=== PATIENT | female | born 1995 | race Two or more races ===

== ENCOUNTER 2019-11-25 18:52 | Emergency (ER) | payer MEDICAID ==
[~2019-11-25] VITALS: Ht 160 cm; Wt 59.0 kg
[2019-11-25 19:21] VITALS: BP 112/75
--- NOTE | 2019-11-25 19:21 | NUR ---
ED Nurse Note: Patient being seen for uti symptoms, urine specimen collected and sent down to lab.
[2019-11-25 19:27] LABS: APPEARANCE,URINE SLIGHTLY CLOUDY; BILIRUBIN, URINE NEGATIVE (NEGATIVE); COLOR,URINE PALE YELLOW; GLUCOSE, URINE (UA) NEGATIVE (NEGATIVE); KETONES,URINE NEGATIVE (NEGATIVE); LEUKOCYTE ESTERASE ,URINE 1+ (NEGATIVE); NITRITE,URINE NEGATIVE (NEGATIVE); PH,URINE 8 (4.5-8.0); PROTEIN,URINE 1+ (NEGATIVE); UROBILINOGEN,URINE NORMAL MG/DL (0.0-1.0)
--- NOTE | 2019-11-25 19:30 | Emergency Room Report ---
History of Present Illness General Chief Complaint: Female Urogenital Problems Source: Patient Present Illness HPI 24 Yo female presents to the ED c/o urinary frequency with 8 out of 10 severity lower abdominal cramping and dysuria x2 days. Patient denies fevers or chills. Patient reports urgency as well. Patient denies nausea, vomiting, fevers, chills, constipation or diarrhea. Patient denies abdominal tenderness. Patient reports her last menstrual period was on November 15. Patient denies suspicion of at this time. She denies hematuria, vaginal discharge, genital lesions or rashes. Patient denies swollen tender lymph nodes or joint pain. She denies low back pain. No other aggravating or relieving factors at this time.. Allergies: Coded Allergies: No Known Allergies (Unverified , 08/25/15) COVID-19 Screening Contact w/high risk pt: No Experienced COVID-19 symptoms?: No COVID-19 Testing performed CARDIOLOGY RN: No Patient History Past Medical History: see triage record Past Surgical History: none Pertinent Family History: none Last Menstrual Period: 11/16/19 Now: No Reviewed Nursing Documentation: PMH: Agreed; PSxH: Agreed Nursing Documentation-PMH Past Medical History: No Stated History Review of Systems All Other Systems: negative except mentioned in HPI Physical Exam Vital Signs Date Time Temp Pulse Resp B/P (MAP) Pulse Ox O2 Delivery O2 Flow Rate FiO2 11/25/19 19:06 97.0 75 14 112/75 (87) 99 Room Air Sp02 EP Interpretation: reviewed, normal General Appearance: no apparent distress, alert, GCS 15, non-toxic Head: normocephalic, atraumatic Eyes: bilateral eye normal inspection, bilateral eye PERRL ENT: hearing grossly normal, normal voice Neck: full range of motion Respiratory: lungs clear, normal breath sounds, speaking full sentences Cardiovascular #1: regular rate, rhythm Gastrointestinal: normal bowel sounds, non tender, soft, non-distended, no guarding Genitourinary: normal inspection, no CVA tenderness Musculoskeletal: back normal, normal range of motion, gait/station normal, non- tender Neurologic: alert, motor strength/tone normal, oriented x3, sensory intact, responsive, speech normal Psychiatric: judgement/insight normal Skin: no rash, normal color Lymphatic: no adenopathy Medical Decision Making PA Attestation Dr. العلي Is my supervising Physician whom patient management has been discussed with. Diagnostic Impression: Primary Impression: UTI (urinary tract infection) Qualified Codes: N30.01 - Acute cystitis with hematuria ER Course 24 Yo female presents to the ED c/o urinary frequency with 8 out of 10 severity lower abdominal cramping and dysuria x2 days. Patient denies fevers or chills. Patient reports urgency as well. Patient denies nausea, vomiting, fevers, chills, constipation or diarrhea. Patient denies abdominal tenderness. Patient reports her last menstrual period was on November 15. Patient denies suspicion of at this time. She denies hematuria, vaginal discharge, genital lesions or rashes. Patient denies swollen tender lymph nodes or joint pain. She denies low back pain. No other aggravating or relieving factors at this time.. Ddx considered but are not limited to UTi , Pyelo, STI, Stone, Cystitis Vital signs: are WNL, pt. is afebrile H&PE are most consistent with UTI ORDERS: - UA labs are attached -- indicative of UTI -Urine Hcg: Negative ED INTERVENTIONS: None required at this time. DISCHARGE: At this time pt. is stable for d/c to home. Will provide printed patient care instructions, and any necessary prescriptions. Care plan and follow up instructions have been discussed with the patient prior to discharge. Labs Test 11/25/19 19:18 Urine Color Pale yellow Urine Appearance Slightly cloudy Urine pH 8 (4.5-8.0) Urine Specific [place] 1.015 (1.005-1.035) Urine Protein 1+ (NEGATIVE) Urine Glucose (UA) Negative (NEGATIVE) Urine Ketones Negative (NEGATIVE) Urine Blood 1+ (NEGATIVE) Urine Nitrite Negative (NEGATIVE) Urine Bilirubin Negative (NEGATIVE) Urine Urobilinogen Normal MG/DL (0.0-1.0) Urine Leukocyte Esterase 1+ (NEGATIVE) Urine RBC 2-4 /HPF (0 - 2) Urine WBC 10-15 /HPF (0 - 2) Urine Squamous Epithelial Cells Many /LPF (NONE/OCC) Urine Amorphous Sediment Moderate /LPF (NONE) Urine Bacteria Moderate /HPF (NONE) Urine HCG, Qualitative Negative (NEGATIVE) Last Vital Signs Date Time Temp Pulse Resp B/P (MAP) Pulse Ox O2 Delivery O2 Flow Rate FiO2 11/25/19 19:06 97.0 75 14 112/75 (87) 99 Room Air Disposition: HOME, SELF-CARE Condition: Stable Scripts Trimethoprim/Sulfamethoxazole 160/800* (BACTRIM DS TABLET*) 1 Each Tablet 1 TAB ORAL TWICE A DAY for 7 Days, #14 TAB Prov: Elicia Degroot 11/25/19 Referrals: [facility] Patient Instructions: Urinary Tract Infection Additional Instructions: Take medications as directed. Follow up with a Primary Care Provider in 3-5 days, even if your symptoms have resolved. --Please review list of primary care clinics, if you do not already have a primary care provider Return sooner to ED if new symptoms occur, or current symptoms become worse. - Please note that this Emergency Department Report was dictated using froolyradio communications superintendent technology software, occasionally this can lead to erroneous entry secondary to interpretation by the dictation equipment. Elicia Degroot Nov 25, 2019 19:30
[2019-11-25] MEDS ORDERED: BACTRIM DS TAB1 EAC1 ORAL (19:40)
[2019-11-25 19:46] VITALS: BP 112/75
--- NOTE | 2019-11-25 19:46 | NUR ---
ER DISCHARGE NOTE: Patient has been cleared for discharge by ER provider. Patient was provided with discharge instructions including a prescription to take to her pharmacy of choice. Patient verbalized understanding of discharge instructions and departed with all belongings to home via her personal vehicle. Patient left in stable condition.
== END 2019-11-25 19:46 | disposition home or self-care (01) ==
LOC: EMR 19:22
DX: N30.01 Acute cystitis with hematuria (principal)
CPT/HCPCS: 81003; 81025; 87086; Z7502; 99283

== ENCOUNTER 2020-02-27 09:53 | Emergency (ER) | payer MEDICAID ==
[~2020-02-27] VITALS: Ht 162.6 cm; Wt 63.5 kg
[~2020-02-27 09:53] MED LIST: BACTRIM DS TAB1 EAC1 ORAL
--- NOTE | 2020-02-27 10:00 | NUR ---
ED Nurse Note: Pt walked in from home c/o bilateral leg pain x 1 week. Pt reports pain getting worse during the night. Pt denies injury. Respirations even and unlabored on room air. Vitals stable as documented. A+Ox4, speaking in complete sentences.
[2020-02-27 10:14] VITALS: BP 123/67
[2020-02-27] MEDS ORDERED: IBUPROFEN600 M1 ORAL (10:15)
[2020-02-27 10:19] VITALS: BP 121/73
--- NOTE | 2020-02-27 10:19 | NUR ---
ED Nurse Note: Pt cleared by health care Provider for discharge. DC instructions/prescription were given and explained to pt and verbalized understanding of teachings. All medical devices such as ID band removed. Pt is AAO x4, ambulatory and left with all personal belongings.
--- NOTE | 2020-02-27 10:25 | Emergency Room Report ---
History of Present Illness General Chief Complaint: Pain Source: Patient Present Illness HPI Disclaimer: Please note that this report is being documented using [employer] technology. This can lead to erroneous entry secondary to incorrect interpretation by the dictating instrument. HPI: 24-year-old otherwise healthy female presents for evaluation of bilateral leg pain. Symptoms present 1 week. She reports an aching and cramping in the upper thighs and lower legs throughout the day though is worse at night. Does not appear to be associated with movement. Cannot recall any exacerbating or relieving factors aside from it being worse at night. She denies swelling, rash, fever, chills. Denies trauma. Ambulating at her baseline without difficulty. Not taken any medication for this pain and discomfort. Denies pain shooting from the back, back pain, dysuria, hematuria, recent fever, chills or other changes in her health. PMH: Denied PSH: Denied Allergies: Denied Social Hx: Denied Allergies: Coded Allergies: No Known Allergies (Unverified , 08/25/15) COVID-19 Screening Contact w/high risk pt: No Experienced COVID-19 symptoms?: No COVID-19 Testing performed PIANO INSTRUCTOR: No Patient History Last Menstrual Period: 02/18/20 Now: No Nursing Documentation-PMH Past Medical History: No Stated History Review of Systems All Other Systems: negative except mentioned in HPI Physical Exam Vital Signs Date Time Temp Pulse Resp B/P (MAP) Pulse Ox O2 Delivery O2 Flow Rate FiO2 02/27/20 09:57 98.1 77 19 112/61 (78) 96 Room Air General: Awake and alert, no acute distress HEENT: NC/AT. EOMI. Resp: Normal work of breathing Skin: Intact. No abrasions, laceration or rash over the exposed skin MSK: Normal tone and bulk. Moving all extremities. No obvious deformity. Lower extremities are symmetrical. No edema. No unilateral calf swelling or deformity. No tenderness over the deep vein distributions on either side. 2+ PT and DP pulses bilaterally. Ambulating with a steady gait. Spine: There is no tenderness step-off or deformity in the lumbosacral spine. No paraspinal tenderness. Neuro: Awake and alert. Mentating appropriately Medical Decision Making Diagnostic Impression: Primary Impression: Leg pain, bilateral ER Course 24-year-old female presents for by lateral myalgias over the past week. Differential includes was not limited to viral syndrome, overuse, restless leg syndrome, fibromyalgia, DVT among others. She is well-appearing stable vital signs has no weakness on exam and neurologically is intact. I find no clinical evidence of DVT. Will start NSAIDs and the patient will be referred to outpatient clinic. Instructed to return with new or worsening symptoms. She understands and agrees with this treatment plan. Last Vital Signs Date Time Temp Pulse Resp B/P (MAP) Pulse Ox O2 Delivery O2 Flow Rate FiO2 02/27/20 10:14 98.3 19 123/67 98 Room Air 02/27/20 09:57 77 Disposition: HOME, SELF-CARE Condition: Stable Scripts Ibuprofen* (MOTRIN*) 600 Mg Tablet 600 MG ORAL Q6H PRN for For Pain, #30 TAB 0 Refills Prov: Jasper Christine MD 02/27/20 Patient Instructions: Restless Legs Syndrome Additional Instructions: Please follow-up with your primary care doctor in the next 1 to 3 days to d richarduss this emergency department visit and for reevaluation. If you have any new or worsening symptoms please return to the emergency department for reevaluation. Please note that this report is being documented using [employer] technology. This can lead to erroneous entry secondary to incorrect interpretation by the dictating instrument. Jasper Christine MD Feb 27, 2020 10:25
== END 2020-02-27 10:19 | disposition home or self-care (01) ==
LOC: EMR 10:05
DX: M79.605 Pain in left leg (principal); M79.604 Pain in right leg
CPT/HCPCS: 99282